=== PATIENT | male | born 1955 | race Two or more races ===

== ENCOUNTER → 2021-03-09 | Emergency (ER) | payer OTHER ==
[~2021-03-09] VITALS: Ht 165.1 cm; Wt 80.7 kg
== END | disposition designated cancer center or children's hospital (05) ==
LOC: ER 09:23 → CPU-OBS 12:36 → ER 12:36
DX: I21.3 ST elevation (STEMI) myocardial infarction of unspecified site (principal); Z11.52 Encounter for screening for COVID-19